=== PATIENT | female | born 2000 | race Caucasian/White ===

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

== ENCOUNTER 2018-03-23 01:11 | Emergency (ER) | payer BC ==
[~2018-03-23] VITALS: Ht 172.7 cm; Wt 85.9 kg
[~2018-03-23 01:11] MED LIST: AMOX500T3 PO; BCPILLS PO; CETI10TA84 PO; FEXO1TAB49 PO; MONT1TAB3 PO; SERT50TA PO; [UNRECOGNIZED DRUG - CODE] PO
[2018-03-23 01:20] VITALS: Ht 172.7 cm; Wt 85.9 kg
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
[2018-03-23 01:24] VITALS: TEMP 36.4
[2018-03-23 02:11] LABS: CALCIUM 8.5 mg/dl (8.5-10.1); CREATININE 0.8 mg/dl (0.60-1.20); POTASSIUM 2.8 mmol/L (3.5-5.1)
[2018-03-23] MEDS ORDERED: POTASSIUM CHLORIDE 10 MEQ / 100ML WTR IV STA (02:18)
[2018-03-23] MEDS ORDERED: POTASSIUM CHLORIDE 20 MEQ TABCR PO STA (05:47)
[2018-03-23] MEDS ORDERED: POTASSIUM CHLORIDE 10 MEQ TABCR ONE (05:53)
[2018-03-23 07:21] VITALS: BP 136/89; PULSE 87; O2SAT 99
== END 2018-03-23 07:22 | disposition home or self-care (01) ==
LOC: EDBD 01:11 → C.EDA 01:13
DX: T51.0X1A Toxic effect of ethanol, accidental (unintentional), initial encounter (principal); Y90.8 Blood alcohol level of 240 mg/100 ml or more; E87.6 Hypokalemia; J45.909 Unspecified asthma, uncomplicated; K21.9 Gastro-esophageal reflux disease without esophagitis; Z79.3 Long term (current) use of hormonal contraceptives; Z79.899 Other long term (current) drug therapy